=== PATIENT | male | born 1980 | race Caucasian/White ===

== ENCOUNTER 2017-01-04 19:04 | Inpatient (IN) | payer OTHER ==
--- NOTE | 2017-01-04 19:56 | ER Document Report ---
ED Medical Screen (RME) - General Chief Complaint: Fever Stated Complaint: FEVER,ABDOMINAL PAIN Time Seen by Provider: 01/04/17 19:52 Notes: Patient is having pain in his abdomen since he awakened yesterday morning. It is throughout the abdomen, but primarily located in the left lower quadrant. He has had some fever off and on. He has had some nausea but has not been vomiting. No change in bowel habits. Denies UTI symptoms. No history of kidney stones. Denies cough or cold or chest congestion. Has not had any abdominal surgeries. On no regular prescription medications. Patient is very tender in the left lower quadrant. TRAVEL OUTSIDE OF THE [place] IN LAST 30 DAYS: No Past Medical History Renal/ Medical History: Denies: Hx Peritoneal Dialysis
[2017-01-04 20:20] LABS: HEMATOCRIT 40.5 % (37.9-51.0); HEMOGLOBIN 13.6 g/dL (13.5-17.0); HGB HCT DIFFERENCE 0.3; MEAN CORPUSCULAR HEMOGLOBIN 30.3 pg (27.0-33.4); MEAN CORPUSCULAR HGB CONC 33.6 g/dL (32.0-36.0); MEAN CORPUSCULAR VOLUME 90 fl (80-97); RED CELL DISTRIBUTION WIDTH 12.7 % (11.5-14.0); WHITE BLOOD COUNT 20.6 10^3/uL (4.0-10.5)
[2017-01-04 20:26] LABS: APPEARANCE,URINE CLOUDY; BILIRUBIN,URINE NEGATIVE (NEGATIVE); GLUCOSE, URINE NEGATIVE (NEGATIVE); KETONES,URINE NEGATIVE (NEGATIVE); LEUKOCYTE ESTERASE,URINE NEGATIVE (NEGATIVE); NITRITE,URINE NEGATIVE (NEGATIVE); PROTEIN,URINE NEGATIVE (NEGATIVE); URINE SPECIFIC GRAVITY 1.011; UROBILINOGEN,URINE NEGATIVE mg/dL (<2.0)
[2017-01-04 20:30] LABS: ALANINE AMINOTRANSFERASE 41 U/L (21-72); ALBUMIN 4.2 g/dL (3.5-5.0); ALKALINE PHOSPHATASE 69 U/L (38-126); ANION GAP 13 (5-19); ASPARTATE AMINO TRANSFERASE 25 U/L (17-59); BILIRUBIN,DIRECT 0.3 mg/dL (0.0-0.4); BILIRUBIN,TOTAL 0.6 mg/dL (0.2-1.3); BLOOD UREA NITROGEN 13 mg/dL (7-20); CALCIUM 9.1 mg/dL (8.4-10.2); CARBON DIOXIDE 25 mmol/L (22-30); CHLORIDE 103 mmol/L (98-107); CREATININE RESULT 1.08 mg/dL (0.52-1.25); GLUCOSE 92 mg/dL (75-110); LIPASE 82.4 U/L (23-300); POTASSIUM 4.4 mmol/L (3.6-5.0); SODIUM 140.8 mmol/L (137-145); TOTAL PROTEIN 7.1 g/dL (6.3-8.2)
--- NOTE | 2017-01-04 20:33 | RADIOLOGY REPORT (SQ) ---
EXAM DESCRIPTION: CT ABD/PELVIS NO ORAL OR IV COMPLETED DATE/TIME: 01/04/2017 8:10 pm REASON FOR STUDY: Abdominal pain, most in LLQ, no history of same COMPARISON: None. TECHNIQUE: CT scan of the abdomen and pelvis performed without intravenous or oral contrast. Images reviewed with lung, soft tissue, and bone windows. Reconstructed coronal and sagittal MPR images revi ewed. All images stored on PACS. All CT scanners at this facility use dose modulation, iterative reconstruction, and/or weight based d osing when appropriate to reduce radiation dose to as low as reasonably achievable (ALARA). [facility]: Dose Right [facility]: CareDose [facility]: Dose Right [facility]: Teradose 4D [facility]: StackMob RADIATION DOSE: 18.49mGy. LIMITATIONS: None. FINDINGS: LOWER CHEST: No significant findings. No nodules or infiltrates. NON-CONTRASTED LIVER, SPLEEN, ADRENALS: Evaluation limited by lack of IV contrast. No identified sign ificant masses. PANCREAS: No masses. No peripancreatic inflammatory changes. GALLBLADDER: No identified stones by CT criteria. No inflammatory changes to suggest cholecystitis. RIGHT KIDNEY AND URETER: No suspicious masses. Assessment limited by lack of IV contrast. No signif icant calcifications. No hydronephrosis or hydroureter. LEFT KIDNEY AND URETER: No suspicious masses. Assessment limited by lack of IV contrast. No signifi cant calcifications. No hydronephrosis or hydroureter. AORTA AND RETROPERITONEUM: No aneurysm. No retroperitoneal masses or adenopathy. BOWEL AND PERITONEAL CAVITY: There is thickening of the bergman of a short segment of sigmoid colon in the left lower quadrant with edematous or inflammatory changes in the adjacent mesenteric fat. Coupl e tiny diverticula are identified in the appearance is most consistent with diverticulitis. There is an associated gas collection which appears to be extra luminal. APPENDIX: Normal. PELVIS, BLADDER, AND ABDOMINAL WALL:No abnormal masses. No free fluid. Bladder normal. BONES: No significant findings. OTHER: No other significant finding. IMPRESSION: Findings consistent with diverticulitis involving a segment of sigmoid colon as noted ab ove. There is an associated gas collection which appears to be extra luminal. This would suggest a perforated diverticulitis. No associated fluid collection is seen. Other findings as noted above. TECHNICAL DOCUMENTATION: JOB ID: [id number] Quality ID # [id number]: Final reports with documentation of one or more dose reduction techniques (e.g., Au tomated exposure control, adjustment of the mA and/or kV according to patient size, use of iterative reconstruction technique) 2010 [employer]- All Rights Reserved
[2017-01-04 20:39] LABS: BAND NEUTROPHILS % (MANUAL) 2 % (3-5); BASOPHILS % (MANUAL) 0 % (0-2); EOSINOPHILS % (MANUAL) 1 % (0-6); LYMPHOCYTES % (MANUAL) 8 % (13-45); TOTAL CELLS COUNTED 100
[2017-01-04 20:41] LABS: PLATELET CLUMPS PRESENT; RBC MORPHOLOGY COMMENT NORMO-CYTIC/CHROMIC; TOXIC GRANULATION SLIGHT
[2017-01-04] MEDS ORDERED: NORMAL SALINE 1000 ML 1,000 ML IV ONE (21:12)
[2017-01-04] MEDS ORDERED: ONDANSETRON HCL INJ/PF 4 MG/2 ML SDV IV ONE (21:12)
[2017-01-04] MEDS ORDERED: MORPHINE SULFATE 10 MG/ML INJ IV ONE (21:13)
[2017-01-04] MEDS ORDERED: LEVOFLOXACIN 750 MG/D5W RTU 150 ML IV ONE (21:13)
[2017-01-04] MEDS ORDERED: METRONIDAZOLE 500 MG/NS RTU 100 ML IV ONE (21:15)
--- NOTE | 2017-01-04 21:33 | ER Document Report ---
ED General - General Chief Complaint: Fever Stated Complaint: FEVER,ABDOMINAL PAIN Time Seen by Provider: 01/04/17 19:52 TRAVEL OUTSIDE OF THE [place] IN LAST 30 DAYS: No - HPI Notes: Patient is a 36-year-old female who presents to the ED complaining of abdominal pain and fever that began yesterday. Pt states that his pain is sharp and primarily to his LLQ. He is still eating, drinking, urinating, and having normal BM's otherwise. He has taken some otc meds for his symptoms with minimal relief. Laying supine helps relax the pain, but any movements make it worse. The pain does not radiate. Denies any URI, sore throat, cough, wheeze, sob, dyspnea, cp, palp, syncope, n/v/d/c, dysuria, hematuria, melena, hematochezia, or rash. No significant GI medical history. No allergies No meds daily + smoker Past Medical History - Social History Smoking Status: Current Every Day Smoker Family History: Other - diverticulosis/diverticulitis Patient has suicidal ideation: No Patient has homicidal ideation: No Renal/ Medical History: Denies: Hx Peritoneal Dialysis Review of Systems - Review of Systems Notes: REVIEW OF SYSTEMS: CONSTITUTIONAL : see hpi EENT: Denies eye, ear, throat, or mouth pain or symptoms. Denies nasal or sinus congestion or discharge. Denies throat, tongue, or mouth swelling or difficulty swallowing. CARDIOVASCULAR: Denies chest pain. Denies palpitations or racing or irregular heart beat. Denies ankle edema. RESPIRATORY: Denies cough, cold, or chest congestion. Denies shortness of breath, difficulty breathing, or wheezing. GASTROINTESTINAL: see hpi GENITOURINARY: Denies difficulty urinating, painful urination, burning, frequency, blood in urine, or discharge. MUSCULOSKELETAL: + generalized ache with fever SKIN: Denies rash, lesions or sores. NEUROLOGICAL: Denies confusion or altered mental status. Denies passing out or loss of consciousness. Denies dizziness or lightheadedness. Denies headache. Denies weakness or paralysis or loss of use of either side. Denies problems with gait or speech. Denies sensory loss, numbness, or tingling. Denies seizures. ALL OTHER SYSTEMS REVIEWED AND NEGATIVE. Dictation was performed using [employer] recognition software Physical Exam - Vital signs Notes: PHYSICAL EXAMINATION: GENERAL: Well-appearing, well-nourished and in no acute distress. Vitals: Pulse 88. RR 16. HEAD: Atraumatic, normocephalic. EYES: Pupils equal round and reactive to light, extraocular movements intact, sclera anicteric, conjunctiva are normal. ENT: EAC clear b/l. TM's intact b/l without erythema, fluid, or perforation. Nares patent and without discharge. oropharynx clear without exudates. No tonsilar hypertrophy or erythema. Moist mucous membranes. No sinus tenderness. NECK: Normal range of motion, supple without lymphadenopathy. no rigidity. LUNGS: Breath sounds clear to auscultation bilaterally and equal. No wheezes rales or rhonchi. HEART: Regular rate and rhythm without murmurs, rubs, gallops. ABDOMEN: soft, + tenderness to the LLQ and RLQ. Bowels sounds present. No bruits or pulsatile mass appreciated. + mild rebound. Musculoskeletal: FROM to passive/active LE's b/l. Strength 5+/5. Extremities: No cyanosis, clubbing, or edema b/l. Peripheral pulses 2+. Capillary refill less than 3 seconds. NEUROLOGICAL: normal gait. Normal sensory, motor exams. PSYCH: Normal mood, normal affect. SKIN: Warm, Dry, normal turgor, no rashes or lesions noted. Course - Re-evaluation Re-evalutation: 01/04/17 21:42 Patient is a mildly febrile, well hydrated, 36-year-old male who presents with diverticulitis and suspected perforation based on CT result. Vitals are otherwise stable. Patient was started on IV Levaquin 750, Flagyl 500, 8 mg Zofran, 10 mg morphine, made n.p.o., 1L saline bolus given, with follow-up of 125/hr continuous saline therafter. Dr. Barrera (surgeon) consulted who will come and evaluate the patient. Reviewed with Dr. Sullivan who is in agreement with plan. Pt in agreement. - Laboratory Result Diagrams: 01/04/17 19:55 01/04/17 19:55 Laboratory results interpreted by me: 01/04/17 19:55 WBC 20.6 H Seg Neuts % (Manual) 80 H Band Neutrophils % 2 L Lymphocytes % (Manual) 8 L Abs Neuts (Manual) 16.9 H Discharge - Discharge Clinical Impression: Perforation of sigmoid colon due to diverticulitis Leukocytosis Qualifiers: Leukocytosis type: unspecified Qualified Code(s): D72.829 - Elevated white blood cell count, unspecified Fever Qualifiers: Fever type: due to other condition Qualified Code(s): R50.81 - Fever presenting with conditions classified elsewhere Condition: Stable Disposition: ADMITTED INPATIENT Admitting Provider: Surgicalist - Dr. Barrera Unit Admitted: Surgical Floor
[2017-01-04] MEDS ORDERED: ENOXAPARIN SODIUM INJ 40 MG/0.4 ML DISP.SYRIN SUBCUT ONE (22:00)
[2017-01-05] MEDS: ONDANSETRON 4 MG TAB.RAPDIS PO PRN ×2 (01:32→20:15)
[2017-01-05] MEDS: MORPHINE SULFATE 10 MG/ML INJ IV PRN ×5 (01:36→20:15)
[2017-01-05] MEDS: METRONIDAZOLE 500 MG/NS RTU 100 ML IV SCH ×4 (01:47→17:26)
[2017-01-05] MEDS: LEVOFLOXACIN 500 MG/D5W RTU 100 ML IV SCH ×2 (02:51→21:00)
[2017-01-05 04:49] LABS: HEMATOCRIT 35.9 % (37.9-51.0); HEMOGLOBIN 12.4 g/dL (13.5-17.0); HGB HCT DIFFERENCE 1.3; MEAN CORPUSCULAR HEMOGLOBIN 30.9 pg (27.0-33.4); MEAN CORPUSCULAR HGB CONC 34.5 g/dL (32.0-36.0); MEAN CORPUSCULAR VOLUME 89 fl (80-97); RED BLOOD COUNT 4.02 10^6/uL (4.35-5.55); RED CELL DISTRIBUTION WIDTH 12.5 % (11.5-14.0); WHITE BLOOD COUNT 18.2 10^3/uL (4.0-10.5)
[2017-01-05 05:02] LABS: ANION GAP 10 (5-19); BLOOD UREA NITROGEN 11 mg/dL (7-20); CALCIUM 8.2 mg/dL (8.4-10.2); CARBON DIOXIDE 19 mmol/L (22-30); CHLORIDE 109 mmol/L (98-107); CREATININE RESULT 0.86 mg/dL (0.52-1.25); GLUCOSE 82 mg/dL (75-110); POTASSIUM 4.2 mmol/L (3.6-5.0); SODIUM 137.8 mmol/L (137-145)
--- NOTE | 2017-01-05 07:36 | PDOC H&P ---
History of Present Illness Patient complains of: Lower abdominal pain History of Present Illness: KARIN PRAKASH is a 36 year old male in usual state of excellent health until yesterday morning when he awoke with left lower quadrant abdominal pain. The pain has been persistent since. It is worsened with movements. Patient has had some generalized malaise. He has had some subjective fever. No generalized abdominal pain. He denies any prior history of this sort of abdominal pain. No recent bowel habit changes. He has no family history of colon cancer although his mother had diverticulitis. Past Medical History Cardiac Medical History: Reports: None Pulmonary Medical History: Reports: None EENT Medical History: Reports: None Neurological Medical History: Reports: None Renal/ Medical History: Reports: None Malignancy Medical History: Reports: None GI Medical History: Reports: None Musculoskeltal Medical History: Reports: None Psychiatric Medical History: Reports: None Hematology: Reports: None Infectious Medical History: Reports: None Past Surgical History Past Surgical History: Reports: None Social History Smoking Status: Current Every Day Smoker Frequency of Alcohol Use: Rare Hx Recreational Drug Use: No Family History Family History: Other - diverticulosis/diverticulitis Parental Family History Reviewed: No Children Family History Reviewed: No Sibling(s) Family History Reviewed.: No Medication/Allergy Allergies/Adverse Reactions: No Known Allergies Allergy (Unverified 01/05/17 00:55) Physical Exam Vital Signs: Intake & Output 01/03/17 01/04/17 01/05/17 06:59 06:59 06:59 Weight 122.5 kg General appearance: PRESENT: no acute distress, cooperative Eye exam: PRESENT: conjunctiva pink Neck exam: PRESENT: other - Supple with no tenderness and no masses Respiratory exam: PRESENT: clear to auscultation lucero Cardiovascular exam: PRESENT: RRR - hr 100 GI/Abdominal exam: PRESENT: other - Soft, nondistended, focal tenderness to palpation the left lower quadrant with focal guarding. Extremities exam: PRESENT: other - No swelling Neurological exam: PRESENT: alert, awake Psychiatric exam: PRESENT: appropriate affect Skin exam: PRESENT: warm Results Laboratory Results: 01/04/17 19:55 01/04/17 19:55 01/04/17 01/04/17 01/04/17 19:55 19:55 20:00 WBC 20.6 H RBC 4.50 Hgb 13.6 Hct 40.5 MCV 90 MCH 30.3 MCHC 33.6 RDW 12.7 Plt Count 308 Seg Neutrophils % Not Reportable Lymphocytes % Not Reportable Monocytes % Not Reportable Eosinophils % Not Reportable Basophils % Not Reportable Absolute Neutrophils Not Reportable Absolute Lymphocytes Not Reportable Absolute Monocytes Not Reportable Absolute Eosinophils Not Reportable Absolute Basophils Not Reportable Sodium 140.8 Potassium 4.4 Chloride 103 Carbon Dioxide 25 Anion Gap 13 BUN 13 Creatinine 1.08 Est GFR ( Amer) > 60 Est GFR (Non-Af Amer) > 60 Glucose 92 Calcium 9.1 Total Bilirubin 0.6 AST 25 ALT 41 Alkaline Phosphatase 69 Total Protein 7.1 Albumin 4.2 Lipase 82.4 Urine Color YELLOW Urine Appearance CLOUDY Urine pH 9.0 Ur Specific [place] 1.011 Urine Protein NEGATIVE Urine Glucose (UA) NEGATIVE Urine Ketones NEGATIVE Urine Blood NEGATIVE Urine Nitrite NEGATIVE Ur Leukocyte Esterase NEGATIVE Urine WBC (Auto) 1 Urine RBC (Auto) 0 Impressions: Abdomen/Pelvis CT 01/04/17 19:53 IMPRESSION: Findings consistent with diverticulitis involving a segment of sigmoid colon as noted above. There is an associated gas collection which appears to be extra luminal. This would suggest a perforated diverticulitis. No associated fluid collection is seen. Other findings as noted above. Assessment & Plan - Diagnosis (1) Perforation of sigmoid colon due to diverticulitis Is this a current diagnosis for this admission?: YesPlan: Despite the extraluminal air patient does not have generalized peritonitis. The process appears to have localized in the left lower quadrant. He does not appear toxic. Therefore I feel that we can initially try to manage him conservatively with IV antibiotics and bowel rest and IV fluids. If he has worsening we will plan to take the patient to the operating room for sigmoid colon resection. I have discussed with the patient my plan and the rationale and he agrees. If he does respond well with conservative measures he will need a colonoscopy in the next several weeks.
[2017-01-05] MEDS: ENOXAPARIN SODIUM INJ 40 MG/0.4 ML DISP.SYRIN SUBCUT SCH (09:30)
--- NOTE | 2017-01-05 13:38 | PROGRESS NOTE E ---
Progress Note NAME: KARIN PRAKASH : 1980 AGE: 36Y DATE: 01/05/2017 ROOM: 533 SUBJECTIVE: Patient was admitted last night for perforated diverticulitis. He has a small amount of air around the left lower quadrant that appeared this morning. His pains have decreased and just mild tenderness at the left lower quadrant. PLAN: Continue IV antibiotics but keep him n.p.o. today. DICTATING PHYSICIAN: CHASITY MCBRIDE M.D. [id number] PHY#: [id number] ID: [id number] JOB#: [id number] ACCT: [id number] cc: >
[2017-01-05] MEDS: NORMAL SALINE 1000 ML 1,000 ML IV PRN (15:56)
[2017-01-06] MEDS: ONDANSETRON 4 MG TAB.RAPDIS PO PRN ×2 (00:56→22:09)
[2017-01-06] MEDS: MORPHINE SULFATE 10 MG/ML INJ IV PRN ×2 (00:56→08:51)
[2017-01-06] MEDS: METRONIDAZOLE 500 MG/NS RTU 100 ML IV SCH ×4 (00:56→17:29)
[2017-01-06] MEDS: NORMAL SALINE 1000 ML 1,000 ML IV PRN (04:22)
[2017-01-06] MEDS: ENOXAPARIN SODIUM INJ 40 MG/0.4 ML DISP.SYRIN SUBCUT SCH (09:16)
--- NOTE | 2017-01-06 12:51 | PDOC PROGRESS REPORT ---
Subjective Progress Note for:: 01/06/17 Subjective:: Patient feels much better like to start a diet. This is patient's first hospitalization and first major medical problem. Of note the patient's mother had a colectomy, colostomy, due to perforated diverticular disease when she was 35 years old. Physical Exam Vital Signs: Temp Pulse Resp BP Pulse Ox 97.9 F 92 17 146/88 H 99 01/06/17 11:38 01/06/17 11:38 01/06/17 11:38 01/06/17 11:38 01/06/17 11:38 Intake & Output 01/05/17 01/06/17 01/07/17 06:59 06:59 06:59 Intake Total 0 1049 375 Output Total 200 1500 Balance -200 -451 375 Weight 122.5 kg 120.3 kg General appearance: PRESENT: no acute distress GI/Abdominal exam: PRESENT: other - Soft minimally tender no rigidity no peritoneal signs. Results Laboratory Results: 01/05/17 04:24 01/05/17 04:24 Impressions: Abdomen/Pelvis CT 01/04/17 19:53 IMPRESSION: Findings consistent with diverticulitis involving a segment of sigmoid colon as noted above. There is an associated gas collection which appears to be extra luminal. This would suggest a perforated diverticulitis. No associated fluid collection is seen. Other findings as noted above. Assessment & Plan - Diagnosis (1) Perforation of sigmoid colon due to diverticulitis Is this a current diagnosis for this admission?: YesPlan: Focal contained perforation, clinically improved with intravenous antibiotics. Plan: 1. We will start clear liquid diet. 2. Encourage p.o. pain medication 3. Patient will require Colonoscopy in outpatient basis
[2017-01-06] MEDS: OXYCODONE-ACETAMINOPHEN 5-325 MG TABLET PO PRN ×3 (13:00→22:09)
[2017-01-06] MEDS: LEVOFLOXACIN 500 MG/D5W RTU 100 ML IV SCH (21:58)
[2017-01-07] MEDS: METRONIDAZOLE 500 MG/NS RTU 100 ML IV SCH ×2 (01:01→06:25)
[2017-01-07] MEDS: ONDANSETRON 4 MG TAB.RAPDIS PO PRN (09:27)
[2017-01-07] MEDS: ENOXAPARIN SODIUM INJ 40 MG/0.4 ML DISP.SYRIN SUBCUT SCH (09:27)
[2017-01-07] MEDS: OXYCODONE-ACETAMINOPHEN 5-325 MG TABLET PO PRN (09:27)
[2017-01-07] MEDS ORDERED: DOCUSATE SODIUM 100 MG CAPSULE PO SCH (10:00)
--- NOTE | 2017-01-07 10:22 | PDOC PROGRESS REPORT ---
Subjective Progress Note for:: 01/07/17 Subjective:: Patient did well overnight tolerating clear liquids, voiding but urine dark. He denies significant abdominal pain. Physical Exam Vital Signs: Temp Pulse Resp BP Pulse Ox 97.9 F 91 18 146/90 H 96 01/07/17 07:40 01/07/17 07:40 01/07/17 07:40 01/07/17 07:40 01/07/17 07:40 Intake & Output 01/06/17 01/07/17 01/08/17 06:59 06:59 06:59 Intake Total 1049 2205 Output Total 1500 5 Balance -451 180 Weight 120.3 kg 120.8 kg General appearance: PRESENT: no acute distress GI/Abdominal exam: PRESENT: other - Less tender left lower quadrant; no peritoneal signs. Results Laboratory Results: 01/05/17 04:24 01/05/17 04:24 Impressions: Abdomen/Pelvis CT 01/04/17 19:53 IMPRESSION: Findings consistent with diverticulitis involving a segment of sigmoid colon as noted above. There is an associated gas collection which appears to be extra luminal. This would suggest a perforated diverticulitis. No associated fluid collection is seen. Other findings as noted above. Assessment & Plan - Diagnosis (1) Perforation of sigmoid colon due to diverticulitis Is this a current diagnosis for this admission?: YesPlan: 1. Continued clinical improvement on clear liquids; urine output dark Plan: 1. We will advance to full liquids 2. We will check electrolytes today and keep IV fluids going 3. Patient may be ready for home in the next 12-24 hours.
[2017-01-07 11:57] LABS: ABSOLUTE EOSINOPHILS # (AUTO) 0.2 10^3/uL (0.0-0.6); ABSOLUTE LYMPHOCYTES (AUTO) 1.7 10^3/uL (0.5-4.7); ABSOLUTE MONOCYTES (AUTO) 0.7 10^3/uL (0.1-1.4); ABSOLUTE NEUT (AUTO) 7.5 10^3/uL (1.7-8.2); BASOPHILS % (AUTO) 0.3 % (0-2); EOSINOPHILS % (AUTO) 1.9 % (0-6); HEMATOCRIT 40.2 % (37.9-51.0); HEMOGLOBIN 13.8 g/dL (13.5-17.0); HGB HCT DIFFERENCE 1.2; LYMPHOCYTES % (AUTO) 16.7 % (13-45); MEAN CORPUSCULAR HEMOGLOBIN 30.2 pg (27.0-33.4); MEAN CORPUSCULAR HGB CONC 34.4 g/dL (32.0-36.0); MEAN CORPUSCULAR VOLUME 88 fl (80-97); MONOCYTES % (AUTO) 6.6 % (3-13); RED BLOOD COUNT 4.57 10^6/uL (4.35-5.55); RED CELL DISTRIBUTION WIDTH 12.2 % (11.5-14.0); SEGMENTED NEUTROPHILS % (AUTO) 74.5 % (42-78)
[2017-01-07 12:14] LABS: ANION GAP 13 (5-19); BLOOD UREA NITROGEN 13 mg/dL (7-20); CALCIUM 9.5 mg/dL (8.4-10.2); CARBON DIOXIDE 22 mmol/L (22-30); CHLORIDE 105 mmol/L (98-107); CREATININE RESULT 0.87 mg/dL (0.52-1.25); GLUCOSE 98 mg/dL (75-110); POTASSIUM 4.2 mmol/L (3.6-5.0); SODIUM 140.3 mmol/L (137-145)
[2017-01-07 14:26] VITALS: BP 136/81
--- NOTE | 2017-01-11 08:09 | DISCHARGE SUMMARY E ---
Discharge Summary NAME: KARIN PRAKASH : 1980 AGE: 36Y ADMITTED: 01/04/2017 DISCHARGED: 01/07/2017 SUMMARY OF HOSPITALIZATION The patient is a 36-year-old male with history of acute onset abdominal pain, tenderness and leukocytosis. He was found by CT scan of the abdomen and pelvis to have evidence of acute sigmoid diverticulitis with contained, localized pericolonic perforation. Patient was admitted to the surgicalist service, treated with IV fluids, antibiotics and clinically improved. By the fourth hospital day, he is felt to be ready for discharge home as he was tolerating a full liquid diet. FINAL DIAGNOSIS: Acute diverticulitis with localized pericolonic abscess, clinically improved on intravenous antibiotics. DISPOSITION: The patient will be discharged home in the care of his family. Followup with Dr. Tyler at [facility] in approximately 1-2 weeks, take p.o. ciprofloxacin and Flagyl, and pain medication as needed. DICTATING PHYSICIAN: LUCIANA AU M.D. [id number] Y#: [id number] ID: [id number] JOB#: [id number] ACCT: [id number] cc:KORI TYLER M.D., TIMOTHY M.D. >
== END 2017-01-07 15:21 | disposition home or self-care (01) | DRG 392 ==
LOC: ER 19:04 → EH 21:47 → UNDOADMIN 22:49 → 5 01-05 02:19
PROVIDERS: ADMIT Surgery; ATTEND Surgery
DX: K57.20 Diverticulitis of large intestine with perforation and abscess without bleeding (principal); F17.200 Nicotine dependence, unspecified, uncomplicated; Z83.79 Family history of other diseases of the digestive system
CPT/HCPCS: 36415; 74176; 80048; 80053; 81001; 83690; 85025; 85027; 87040; 99285; J1650; J1956; J2270; J3490; J7030; S0119

== ENCOUNTER 2017-09-03 13:10 | Emergency (ER) | payer OTHER, BC ==
[2017-09-03] MEDS ORDERED: KETOROLAC TROMETHAMINE 60 MG/2 ML SDV IM ONE (15:38)
[2017-09-03] MEDS ORDERED: DEXAMETHASONE SOD PHOS INJ 10 MG/1 ML VIAL IM ONE (15:38)
--- NOTE | 2017-09-03 15:38 | ER Document Report ---
HPI - HPI Patient complains to provider of: Back pain Pain Level: 4 Context: Is a 37-year-old male presents for department complaining of right-sided low back pain with right-sided sciatica. 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 States that [place] [employer] [place] yesterday and after he was done he started having recurrence of his pain. Did not take anything prior to arrival. Denies any surgery in the past. Denies any previous workup by primary care since she has not presented to them with this problem. States he has had back pain on and off for the past 2 years. Otherwise denies any saddle anesthesia, urinary stool incontinence, weakness or difficulty ambulate in. Past Medical History - Social History Smoking Status: Current Every Day Smoker Family History: Other - diverticulosis/diverticulitis Renal/ Medical History: Denies: Hx Peritoneal Dialysis Vertical Provider Document - CONSTITUTIONAL Agree With Documented VS: Yes Notes: PHYSICAL EXAM GENERAL: Alert, interacts well. NECK: Full range of motion. Supple. Trachea midline. EXTREMITIES: Moves all 4 extremities spontaneously. No edema, radial and dorsalis pedis pulses 2/4 bilaterally. No cyanosis. Back: 5 out of 5 strength both distally and proximally bilateral lower extremities. 2+ patellar reflexes bilaterally. No clonus. Sensation grossly intact in the bilateral lower extremities. Patient is able to ambulate without difficulty. Pain reproduced palpation of the right paralumbar musculature without any spinous process deformities, step-offs NEUROLOGICAL: Alert and oriented x4. Normal speech. PSYCH: Normal affect, normal mood. SKIN: Warm, dry, normal turgor. No rashes or lesions noted. - INFECTION CONTROL TRAVEL OUTSIDE OF THE [place] IN LAST 30 DAYS: No - RESPIRATORY O2 Sat by Pulse Oximetry: 97 Course - Re-evaluation Re-evalutation: 09/03/17 15:36 Patient is a 37-year-old male is hemodynamically stable, no acute distress afebrile. Presentation is consistent with a muscle strain due to activity yesterday. The patient presents with low back pain without signs of spinal cord compression, cauda equina syndrome, infection, aneurysm, or other serious etiology. The patient is neurologically intact. Given the extremely low risk of these diagnoses further testing and evaluation for these possibilities does not appear to be indicated at this time. The patient has been instructed to return if the symptoms worsen or change in any way. - Vital Signs Vital signs: Temp Pulse Resp BP Pulse Ox 98.9 F 90 18 145/86 H 97 09/03/17 13:25 09/03/17 13:25 09/03/17 13:25 09/03/17 13:25 09/03/17 13:25 Discharge - Discharge Clinical Impression: Back pain Qualifiers: Back pain location: low back pain Chronicity: chronic Back pain laterality: right Sciatica presence: with sciatica Sciatica laterality: sciatica of right side Qualified Code(s): M54.41 - Lumbago with sciatica, right side Condition: Good Disposition: HOME, SELF-CARE Additional Instructions: LOW BACK PAIN: Three out of every four people will have an episode of disabling back pain during their lifetime. Most commonly the pain is due to straining of the muscles and ligaments in the low back. Usual treatment includes: (1) Rest on a firm surface. Avoid lying on your stomach. (2) Ice pack the painful area. After a few days, gentle heat may be used intermittently to relax the area, or ice packs can be continued. (3) Medication may be needed -- muscle relaxers and antiinflammatory medicines are commonly used. (4) As the back improves, exercises are prescribed to strengthen the back and abdominal muscles. Your doctor will advise you on the proper care for your back at each stage in your recovery. You may be better in a few days -- or healing may take several weeks. If new symptoms of a "herniated disc" (radiation of pain, numbness, or tingling down the back of the leg or weakness in the leg) occur, you should be re-examined. Further testing may be necessary. PAIN MEDICATION INJECTION: You have received an injection of a pain medication. You should experience significant pain relief within 45 minutes. If this injection was a narcotic -- it will impair your judgement, slow your reaction time and make you sleepy (as well as relieve your pain). Narcotics also can cause nausea. You should not drive, work with machinery, or perform any task requiring mental alertness until all effects of the medication are gone -- six to eight hours. Do not take any alcohol, or sedatives, and do not take any other medication without checking with your physician. MUSCLE RELAXERS: Muscle relaxing medications are usually prescribed for acute muscle spasm or injury to the neck and back. They are often combined with antiinflammatory pain medication for increased relief. You may stop the muscle relaxer when the pain and stiffness have improved. Start the medication again if spasms recur. Muscle relaxers may cause drowsiness, especially with the first dose. Do not operate machinery or drive while under the effects of the medication. Most muscle relaxers last up to 24 hours. Do not combine the medication with alcohol. ICE PACKS: Apply ice packs frequently against the painful area. Many different schedules are recommended, such as "20 minutes on, 20 minutes off" or "one hour ice, two hours rest." If you need to work, you may need to go longer between ice treatments. You should plan to have the area ice packed AT LEAST one fourth of the time. The ice should be applied over the wrap, tape, or splint, or over a layer of cloth -- not directly against the skin. Some ice bags have a built-in cloth and can be put directly on the skin. WARM PACKS: After approximately two days, apply gentle heat (such as a heating pad or hot water bottle) for about 20 to 30 minutes about every two hours -- at least four times daily. Warmth and elevation will help you make a more rapid recovery , and will ease the pain considerably. Do not use HOT heat, and never apply heat for longer than 30 minutes. The continuous heat can invisibly damage skin and muscles -- even when no burn is seen on the surface. Damaged muscles can make you MORE sore. FOLLOW-UP CARE: If you have been referred to a physician for follow-up care, call the physician s office for an appointment as you were instructed or within the next two days. If you experience worsening or a significant change in your symptoms, notify the physician immediately or return to the Emergency Department at any time for re-evaluation. Prescriptions: Cyclobenzaprine HCl [Flexeril 10 mg Tablet] 10 mg PO TIDP PRN #15 tab PRN Reason: Naproxen 500 mg PO BID #20 tablet Forms: Special Work Note, Return to Work Referrals: OLINDA MACIEL MD [ACTIVE STAFF] - Follow up in 1 week
[2017-09-03 16:36] VITALS: BP 144/89
== END 2017-09-03 16:43 | disposition home or self-care (01) ==
LOC: ER 13:10
DX: M54.41 Lumbago with sciatica, right side (principal); F17.200 Nicotine dependence, unspecified, uncomplicated
CPT/HCPCS: 99283; 96372; J1885; J1100